=== PATIENT | female | born 1965 | race Caucasian/White ===

== ENCOUNTER 2016-05-02 22:22 | Emergency (ER) | payer OTHER ==
[2016-05-02 22:28] VITALS: BP 132/75; PULSE 86; TEMP 98.7; BMI 19.1
[2016-05-02] MEDS ORDERED: DEXAMETHASONE 4 MG TABLET (FP) ONE (22:38)
--- NOTE | 2016-05-02 22:39 | PDOC ---
History of Present Illness - General Chief Complaint: Sore Throat Stated Complaint: SORE THROAT/EARACHE History Source: Patient Exam Limitations: No Limitations Past History - Past Medical History Allergies/Adverse Reactions: Allergies Allergy/AdvReac Type Severity Reaction Status Date / Time amoxicillin Allergy Verified 05/02/16 22:25 azithromycin [From Zithromax] Allergy Verified 05/02/16 22:25 Home Medications: Ambulatory Orders NK [No Known Home Medication] 05/02/16 Other medical history: DENIES - Psycho/Social/Smoking Cessation Hx Anxiety: No Suicidal Ideation: No Smoking History: Never smoked Have you smoked in the past 12 months: No Review of Systems - Review of Systems Able to Perform ROS?: Yes Is the patient limited Setswana proficient: No Constitutional: Yes: Symptoms Reported, See HPI, Chills, Diaphoresis, Fever, Malaise, Night Sweats HEENTM: Yes: Symptoms Reported, See HPI, Ear Pain, Nose Congestion, Throat Pain. No: Ear Discharge Respiratory: Yes: Symptoms reported, See HPI, Cough Cardiac (ROS): No: Symptoms Reported All Other Systems: Reviewed and Negative *Physical Exam - Vital Signs Last Vital Signs Temp Pulse Resp BP Pulse Ox 98.7 F 86 16 132/75 100 05/02/16 22:26 05/02/16 22:26 05/02/16 22:26 05/02/16 22:26 05/02/16 22:26 - Physical Exam General Appearance: Yes: Nourished, Appropriately Dressed. No: Apparent Distress HEENT: positive: EOMI, Normal ENT Inspection Neck: positive: Supple. negative: Tender Respiratory/Chest: positive: Lungs Clear, Normal Breath Sounds. negative: Chest Tender, Respiratory Distress Cardiovascular: positive: Regular Rhythm, Regular Rate Lymphatic: negative: Adenopathy Musculoskeletal: positive: Normal Inspection. negative: CVA Tenderness Neurologic: positive: Fully Oriented, Alert, Normal Mood/Affect, Normal Response , Motor Strength 5/5 *DC/Admit/Observation/Transfer Diagnosis at time of Disposition: Viral infection - Discharge Dispostion Disposition: HOME Condition at time of disposition: Stable Admit: No - Referrals Referrals: Noni Galvez MD [Primary Care Provider] - 2 Days - Patient Instructions Additional Instructions: PLENTY OF FLUIDS (WATER/GATORADE) MOTRIN/TYLENOL FOR FEVER OR PAIN REST RETURN IF FEVER, VOMITING, SHORTNESS OF BREATH
[2016-05-02] MEDS ORDERED: DEXAMETHASONE 4 MG TABLET (FP) PO ONE (22:45)
== END 2016-05-02 22:46 | disposition home or self-care (01) ==
LOC: FER 22:22
DX: B34.9 Viral infection, unspecified (principal)
CPT/HCPCS: 99282-25

== ENCOUNTER 2021-08-21 16:28 | Emergency (ER) | payer OTHER ==
[2021-08-21] MEDS ORDERED: ALPRAZolam 1 MG TABLET PO PRN (16:31)
[2021-08-21 16:52] VITALS: BP 130/71; PULSE 62; TEMP 99.5; BMI 16.6
[2021-08-21 17:01] LABS: HEMATOCRIT 40.3 % (32.4-45.2); HEMOGLOBIN 13.9 G/dL (10.7-15.3); MCH 31.3 pg (25.7-33.7); MCHC 34.4 g/dl (32.0-36.0); MEAN CELL VOLUME 90.7 fl (80-96); MEAN PLT VOLUME 7.9 fl (7.5-11.1); PLATELET COUNT 323.8 10^3/uL (134-434); RBC 4.44 10^6/uL (3.60-5.2); RDW 14.7 % (11.6-15.6); WHITE BLOOD COUNT 5.7 10^3/uL (4.0-10.8)
[2021-08-21 17:15] LABS: ALBUMIN 4.4 g/dl (3.4-5.0); BILIRUBIN,TOTAL 0.7 mg/dl (0.2-1); CALCIUM 9.4 mg/dl (8.5-10); CREATININE 0.6 mg/dl (0.55-1.3); TOT PROT 6.7 g/dl (6.4-8.2)
[2021-08-21] MEDS ORDERED: ALPRAZolam 0.25 MG TABLET ONE (17:37)
[2021-08-21 18:08] LABS: PLATELET ESTIMATE ADEQUATE
== END 2021-08-21 18:20 | disposition home or self-care (01) ==
LOC: FER 16:28
DX: G47.00 Insomnia, unspecified (principal)
CPT/HCPCS: 36415; 80053; 84443; 85027; 99283-25

== ENCOUNTER 2021-08-31 22:36 | Emergency (ER) | payer OTHER ==
[2021-08-31 22:44] VITALS: BP 102/80; PULSE 77; TEMP 98.4; BMI 16.6
[2021-08-31] MEDS ORDERED: metroNIDAZOLE 250 MG TABLET PO ONE (23:04)
[2021-08-31] MEDS ORDERED: KETOROLAC TROMETHAMINE 60 MG/2 ML VIAL IM ONE (23:06)
[2021-08-31] MEDS ORDERED: metroNIDAZOLE 250 MG TABLET ONE (23:09)
[2021-08-31] MEDS ORDERED: KETOROLAC TROMETHAMINE 60 MG/2 ML VIAL ONE (23:09)
== END 2021-08-31 23:14 | disposition home or self-care (01) ==
LOC: FER 22:36
PROC: 3E0233Z Introduction of Anti-inflammatory into Muscle, Percutaneous Approach (ICD-10-PCS; principal; 2021-08-31)
DX: K12.2 Cellulitis and abscess of mouth (principal)
CPT/HCPCS: 99284-25

== ENCOUNTER 2023-07-11 02:19 | Emergency (ER) | payer OTHER ==
[2023-07-11 02:25] VITALS: BP 130/87; PULSE 59; RESP 16; TEMP 98.1; BMI 19.5
[2023-07-11] MEDS ORDERED: ONDANSETRON 4 MG/2 ML VIAL ONE (03:10)
[2023-07-11] MEDS ORDERED: ACETAMINOPHEN INJECTION 100 ML IVPB ONE (03:10)
[2023-07-11] MEDS: ONDANSETRON 4 MG/2 ML VIAL IVPUSH ONE (03:18)
[2023-07-11] MEDS: ACETAMINOPHEN 1000 MG/100 ML BAG IVPB ONE (03:18)
[2023-07-11 04:57] LABS: PH,URINE 6.5 (5.0-8.0); URINE APPEARANCE CLEAR; URINE BILIRUBIN NEGATIVE (NEGATIVE); URINE COLOR YELLOW; URINE GLUCOSE (UA) NEGATIVE (NEGATIVE); URINE KETONE NEGATIVE (NEGATIVE); URINE LEUK ESTERASE NEGATIVE (NEGATIVE); URINE NITRITE NEGATIVE (NEGATIVE); URINE PROTEIN NEGATIVE (NEGATIVE); URINE UROBILINOGEN 0.2 mg/dL (0.2-1.0)
[2023-07-11] MEDS: KETOROLAC TROMETHAMINE 30 MG/1 ML VIAL IVPUSH ONE (05:14)
== END 2023-07-11 05:51 | disposition home or self-care (01) ==
LOC: FER 02:19
PROC: 3E0333Z Introduction of Anti-inflammatory into Peripheral Vein, Percutaneous Approach (ICD-10-PCS; principal; 2023-07-11)
PROC: 3E033NZ Introduction of Analgesics, Hypnotics, Sedatives into Peripheral Vein, Percutaneous Approach (ICD-10-PCS; 2023-07-11)
PROC: 3E033GC Introduction of Other Therapeutic Substance into Peripheral Vein, Percutaneous Approach (ICD-10-PCS; 2023-07-11)
DX: M54.50 Low back pain, unspecified (principal); K52.9 Noninfective gastroenteritis and colitis, unspecified; R11.2 Nausea with vomiting, unspecified
CPT/HCPCS: 81003; 99284-25; J0131

== ENCOUNTER 2024-02-08 17:38 | Emergency (ER) | payer OTHER ==
[2024-02-08 18:05] VITALS: BP 120/80; PULSE 87; RESP 16; TEMP 98.5; BMI 17.4
[2024-02-08] MEDS ORDERED: ACETAMINOPHEN 325 MG TABLET (FP) ONE (18:23)
[2024-02-08] MEDS ORDERED: ONDANSETRON 4 MG/2 ML VIAL ONE (18:23)
[2024-02-08] MEDS: ACETAMINOPHEN 325 MG TABLET (FP) PO ONE (18:30)
[2024-02-08] MEDS: ONDANSETRON 4 MG/2 ML VIAL IVPUSH ONE (18:35)
[2024-02-08] MEDS: SODIUM CHLORIDE 0.9% 500 ML INFUS.BAG IV ONE (18:35)
[2024-02-08 18:54] LABS: HEMATOCRIT 40.4 % (32.4-45.2); HEMOGLOBIN 13.4 G/dL (10.7-15.3); MCH 31.5 pg (25.7-33.7); MCHC 33.2 g/dl (32.0-36.0); MEAN CELL VOLUME 94.8 fl (80-96); MEAN PLT VOLUME 7.8 fl (7.5-11.1); PLATELET COUNT 330.3 10^3/uL (134-434); RBC 4.26 10^6/uL (3.60-5.2); RDW 13.8 % (11.6-15.6); WHITE BLOOD COUNT 6.7 10^3/uL (4.0-10.8)
[2024-02-08 19:16] LABS: ALBUMIN 4.4 g/dl (3.4-5.0); BILIRUBIN,TOTAL 0.4 mg/dl (0.2-1); CALCIUM 9.7 mg/dl (8.5-10.1); CREATININE 0.7 mg/dl (0.6-1.3); POTASSIUM 3.9 mmol/L (3.5-5.1); TOT PROT 6.4 g/dl (6.4-8.2)
[2024-02-08 19:17] LABS: PLATELET ESTIMATE ADEQUATE
== END 2024-02-08 20:18 | disposition home or self-care (01) ==
LOC: FER 17:38
PROC: 3E033GC Introduction of Other Therapeutic Substance into Peripheral Vein, Percutaneous Approach (ICD-10-PCS; principal; 2024-02-08)
DX: R51.9 Headache, unspecified (principal); R68.83 Chills (without fever); M79.10 Myalgia, unspecified site; R19.7 Diarrhea, unspecified; B34.9 Viral infection, unspecified; R21 Rash and other nonspecific skin eruption; L03.115 Cellulitis of right lower limb; L03.116 Cellulitis of left lower limb; Z20.822 Contact with and (suspected) exposure to COVID-19
CPT/HCPCS: 0241U-QW; 36415; 80053; 85027; 99284-25